=== PATIENT | female | born 1990 | race Caucasian/White ===

== ENCOUNTER 2016-09-22 07:29 | Emergency (ER) | payer SELFPAY ==
[2016-09-22 07:58] LABS: BASOPHILS 0.3 % (0-2); EOSINOPHILS 1.5 % (0-7); HEMATOCRIT 43.8 % (36.0-48.0); HEMOGLOBIN 15.1 g/dL (12-16); IMMATURE GRANULOCYTES 0.3 % (0-5); LYMPHOCYTES 22.2 % (15-50); MCH 33.6 pg (26.0-34.0); MCHC 34.5 g/dL (31.0-37.0); MCV 97.6 fL (80.0-100.0); MEAN PLATELET VOLUME 10.7 fL (7.4-10.4); MONOCYTES 10.1 % (2-11); NEUTROPHILS 65.6 % (40-80); PLATELET COUNT 210 10x3/uL (130-400); RBC 4.49 10x6/uL (4.00-5.40); RDW 12.2 % (11.5-14.5); WBC 7.4 10x3/uL (4.8-10.8)
[2016-09-22 08:04] LABS: HCG URINE NEGATIVE (NEGATIVE)
[2016-09-22 08:10] LABS: APPEARANCE HAZY (CLEAR); BACTERIA MODERATE /hpf (NONE SEEN); BILIRUBIN NEGATIVE (NEGATIVE); COLOR YELLOW (YELLOW); EPITHELIAL CELLS 0-5 /hpf (0-5); GLUCOSE NEGATIVE (NEGATIVE); KETONE NEGATIVE (NEGATIVE); LEUKOCYTE ESTERASE TRACE (NEGATIVE); MUCUS <1+ /lpf (NONE SEEN); NITRITE NEGATIVE (NEGATIVE); PROTEIN NEGATIVE (NEGATIVE); SPECIFIC GRAVITY 1.015 (1.005-1.020); UROBILINOGEN NORMAL (NORMAL)
[2016-09-22 08:15] LABS: ALBUMIN 4.5 g/dL (3.4-5.0); ALKALINE PHOSPHATASE 46 U/L (46-116); ALT (SGPT) 24 U/L (10-68); BILIRUBIN - TOTAL 0.74 mg/dL (0.2-1.3); CALC OSMOLALITY 280 mosm/kg (275-300); CHLORIDE - SERUM 105 mmol/L (98-107); CREATININE - SERUM 0.9 mg/dL (0.6-1.3); GLUCOSE 83 mg/dL (74-106); LIPASE 182 U/L (73-393); POTASSIUM - SERUM 3.6 mmol/L (3.5-5.1); PROTEIN - SERUM 8.1 g/dL (6.4-8.2); SODIUM 142 mmol/L (136-145); UREA NITROGEN 9 mg/dL (7-18); eGFR NON AFRICAN AMERICAN 80 mL/min (90-120)
== END 2016-09-22 09:25 | disposition home or self-care (01) ==
LOC: D.ER 07:29
PROVIDERS: Emergency Medicine
DX: N23 Unspecified renal colic (principal); K59.00 Constipation, unspecified; F17.200 Nicotine dependence, unspecified, uncomplicated

== ENCOUNTER 2016-12-10 06:32 | Emergency (ER) | payer MEDICAID | END 2016-12-10 08:51 | disposition home or self-care (01) | LOC: D.ER 06:32 | DX: R09.1 Pleurisy (principal); F17.200 Nicotine dependence, unspecified, uncomplicated ==

== ENCOUNTER 2017-02-04 19:31 | Emergency (ER) | payer MEDICAID ==
[2017-02-04 19:53] LABS: BASOPHILS 0.4 % (0-2); EOSINOPHILS 1.4 % (0-7); HEMATOCRIT 41.1 % (36.0-48.0); IMMATURE GRANULOCYTES 0.1 % (0-5); LYMPHOCYTES 27.7 % (15-50); MCH 32.1 pg (26.0-34.0); MCHC 34.1 g/dL (31.0-37.0); MCV 94.3 fL (80.0-100.0); MEAN PLATELET VOLUME 10.6 fL (7.4-10.4); MONOCYTES 7.4 % (2-11); PLATELET COUNT 218 10x3/uL (130-400); RBC 4.36 10x6/uL (4.00-5.40); RDW 12.9 % (11.5-14.5)
[2017-02-04 19:59] LABS: APPEARANCE CLEAR (CLEAR); COLOR YELLOW (YELLOW); SPECIFIC GRAVITY 1.015 (1.005-1.020)
[2017-02-04 20:00] LABS: BILIRUBIN NEGATIVE (NEGATIVE); GLUCOSE NEGATIVE (NEGATIVE); KETONE NEGATIVE (NEGATIVE); NITRITE NEGATIVE (NEGATIVE); PROTEIN NEGATIVE (NEGATIVE); UROBILINOGEN NORMAL (NORMAL)
[2017-02-04 20:01] LABS: BACTERIA MODERATE /hpf (NONE SEEN); HCG URINE NEGATIVE (NEGATIVE); MUCUS <1+ /lpf (NONE SEEN); RED CELLS - URINE 0-5 /hpf (0-5); WHITE CELLS - URINE 0-5 /hpf (0-5)
[2017-02-04 20:03] LABS: AMYLASE - SERUM 65 U/L (25-115); LIPASE 179 U/L (73-393)
[2017-02-04 20:17] LABS: ALBUMIN 4.5 g/dL (3.4-5.0); ANION GAP 11.3 mmol/L (8-16); BILIRUBIN - TOTAL 0.3 mg/dL (0.2-1.3); CALCIUM 9.9 mg/dL (8.5-10.1); CARBON DIOXIDE 27.4 mmol/L (21.0-32.0); POTASSIUM - SERUM 3.7 mmol/L (3.5-5.1); PROTEIN - SERUM 8.3 g/dL (6.4-8.2)
== END 2017-02-04 22:50 | disposition home or self-care (01) ==
LOC: D.ER 19:31
PROVIDERS: Emergency Medicine
DX: R10.13 Epigastric pain (principal); F17.200 Nicotine dependence, unspecified, uncomplicated

== ENCOUNTER 2017-04-05 15:50 | Emergency (ER) | payer MEDICAID ==
[2017-04-05 16:17] LABS: BASOPHILS 0.2 % (0-2); EOSINOPHILS 0.6 % (0-7); HEMATOCRIT 42.1 % (36.0-48.0); HEMOGLOBIN 14.4 g/dL (12-16); IMMATURE GRANULOCYTES 0.2 % (0-5); LYMPHOCYTES 17.6 % (15-50); MCH 32.4 pg (26.0-34.0); MCHC 34.2 g/dL (31.0-37.0); MCV 94.8 fL (80.0-100.0); MEAN PLATELET VOLUME 10.8 fL (7.4-10.4); MONOCYTES 8.3 % (2-11); NEUTROPHILS 73.1 % (40-80); PLATELET COUNT 200 10x3/uL (130-400); RBC 4.44 10x6/uL (4.00-5.40); WBC 8.7 10x3/uL (4.8-10.8)
[2017-04-05 16:40] LABS: ALBUMIN 4.5 g/dL (3.4-5.0); ALKALINE PHOSPHATASE 46 U/L (46-116); ALT (SGPT) 20 U/L (10-68); AMYLASE - SERUM 57 U/L (25-115); CALC OSMOLALITY 276 mosm/kg (275-300); CALCIUM 9.5 mg/dL (8.5-10.1); CARBON DIOXIDE 26.7 mmol/L (21.0-32.0); CHLORIDE - SERUM 104 mmol/L (98-107); CREATININE - SERUM 0.9 mg/dL (0.6-1.3); GLUCOSE 98 mg/dL (74-106); LIPASE 167 U/L (73-393); POTASSIUM - SERUM 3.8 mmol/L (3.5-5.1); PROTEIN - SERUM 7.9 g/dL (6.4-8.2); SODIUM 139 mmol/L (136-145); UREA NITROGEN 11 mg/dL (7-18); eGFR NON AFRICAN AMERICAN 79 mL/min (90-120)
[2017-04-05 16:42] LABS: APPEARANCE CLEAR (CLEAR); BILIRUBIN NEGATIVE (NEGATIVE); COLOR YELLOW (YELLOW); GLUCOSE NEGATIVE (NEGATIVE); KETONE NEGATIVE (NEGATIVE); NITRITE NEGATIVE (NEGATIVE); PROTEIN NEGATIVE (NEGATIVE); UROBILINOGEN NORMAL (NORMAL)
[2017-04-05 16:43] LABS: WHITE CELLS - URINE 0-5 /hpf (0-5)
[2017-04-05 16:44] LABS: BACTERIA FEW /hpf (NONE SEEN); EPITHELIAL CELLS 0-5 /hpf (0-5); RED CELLS - URINE OCC /hpf (0-5)
== END 2017-04-05 18:13 | disposition home or self-care (01) ==
LOC: D.ER 15:50
PROVIDERS: Emergency Medicine
DX: R10.13 Epigastric pain (principal); F17.200 Nicotine dependence, unspecified, uncomplicated

== ENCOUNTER 2017-04-12 09:38 | Emergency (ER) | payer MEDICAID ==
[2017-04-12 10:22] LABS: HEMATOCRIT 38.2 % (36.0-48.0); HEMOGLOBIN 13.3 g/dL (12-16); LYMPHOCYTES 6.2 % (15-50); MCHC 34.8 g/dL (31.0-37.0); MCV 91.8 fL (80.0-100.0); NEUTROPHILS 86.6 % (40-80); RBC 4.16 10x6/uL (4.00-5.40); RDW 12.1 % (11.5-14.5); WBC 12.1 10x3/uL (4.8-10.8)
[2017-04-12 10:23] LABS: PLATELET COUNT 136 10x3/uL (130-400)
[2017-04-12 10:31] LABS: ALBUMIN 3.7 g/dL (3.4-5.0); ALKALINE PHOSPHATASE 45 U/L (46-116); ALT (SGPT) 19 U/L (10-68); CALC OSMOLALITY 268 mosm/kg (275-300); CALCIUM 8.4 mg/dL (8.5-10.1); CARBON DIOXIDE 23.7 mmol/L (21.0-32.0); CHLORIDE - SERUM 101 mmol/L (98-107); CREATININE - SERUM 0.9 mg/dL (0.6-1.3); GLUCOSE 102 mg/dL (74-106); POTASSIUM - SERUM 3.6 mmol/L (3.5-5.1); PROTEIN - SERUM 7.3 g/dL (6.4-8.2); SODIUM 135 mmol/L (136-145); UREA NITROGEN 9 mg/dL (7-18); eGFR NON AFRICAN AMERICAN 79 mL/min (90-120)
[2017-04-12 13:30] LABS: COLOR YELLOW (YELLOW)
[2017-04-12 13:31] LABS: APPEARANCE CLOUDY (CLEAR); BACTERIA MANY /hpf (NONE SEEN); BILIRUBIN NEGATIVE (NEGATIVE); EPITHELIAL CELLS 25-50 /hpf (0-5); GLUCOSE NEGATIVE (NEGATIVE); KETONE LARGE mg/dL (NEGATIVE); MUCUS >1+ /lpf (NONE SEEN); NITRITE POSITIVE (NEGATIVE); PROTEIN 1+ mg/dL (NEGATIVE); UROBILINOGEN NORMAL (NORMAL); WHITE CELLS - URINE 25-50 /hpf (0-5)
== END 2017-04-12 16:17 | disposition home or self-care (01) ==
LOC: D.ER 09:38
PROVIDERS: Family Medicine; Physician Assistant
DX: R50.9 Fever, unspecified (principal); R05 Cough; N12 Tubulo-interstitial nephritis, not specified as acute or chronic

== ENCOUNTER → 2017-05-10 12:19 | Outpatient (CLI) | payer MEDICAID | END | disposition home or self-care (01) | LOC: D.NM 12:19 | DX: R10.9 Unspecified abdominal pain (principal) ==

== ENCOUNTER 2017-07-22 20:14 | Emergency (ER) | payer MEDICAID ==
[2017-07-22 21:09] LABS: BASOPHILS 0.2 % (0-2); EOSINOPHILS 2.4 % (0-7); HEMATOCRIT 42.1 % (36.0-48.0); HEMOGLOBIN 14.9 g/dL (12-16); IMMATURE GRANULOCYTES 0.2 % (0-5); LYMPHOCYTES 28.8 % (15-50); MCH 33.4 pg (26.0-34.0); MCHC 35.4 g/dL (31.0-37.0); MCV 94.4 fL (80.0-100.0); MEAN PLATELET VOLUME 11.1 fL (7.4-10.4); MONOCYTES 8.5 % (2-11); NEUTROPHILS 59.9 % (40-80); RBC 4.46 10x6/uL (4.00-5.40); RDW 11.6 % (11.5-14.5); WBC 8.9 10x3/uL (4.8-10.8)
[2017-07-22 21:10] LABS: PLATELET COUNT 241 10x3/uL (130-400)
[2017-07-22 21:22] LABS: HCG SERUM NEGATIVE (NEGATIVE)
[2017-07-22 21:23] LABS: ALBUMIN 4.4 g/dL (3.4-5.0); ALKALINE PHOSPHATASE 52 U/L (46-116); ALT (SGPT) 19 U/L (10-68); CALC OSMOLALITY 281 mosm/kg (275-300); CALCIUM 9.7 mg/dL (8.5-10.1); CHLORIDE - SERUM 107 mmol/L (98-107); CREATININE - SERUM 0.8 mg/dL (0.6-1.3); GLUCOSE 86 mg/dL (74-106); POTASSIUM - SERUM 3.2 mmol/L (3.5-5.1); SODIUM 143 mmol/L (136-145); UREA NITROGEN 7 mg/dL (7-18); eGFR NON AFRICAN AMERICAN 90 mL/min (90-120)
[2017-07-22 21:26] LABS: AMYLASE - SERUM 53 U/L (25-115); LIPASE 185 U/L (73-393); TROPONIN-I < 0.017 ng/mL (0.000-0.060)
[2017-07-22 21:48] LABS: APPEARANCE HAZY (CLEAR); BILIRUBIN NEGATIVE (NEGATIVE); COLOR YELLOW (YELLOW); GLUCOSE NEGATIVE (NEGATIVE); KETONE NEGATIVE (NEGATIVE); NITRITE POSITIVE (NEGATIVE); PROTEIN NEGATIVE (NEGATIVE); SPECIFIC GRAVITY 1.015 (1.005-1.020); UROBILINOGEN NORMAL (NORMAL)
[2017-07-22 21:52] LABS: HCG URINE NEGATIVE (NEGATIVE)
== END 2017-07-23 00:17 | disposition home or self-care (01) ==
LOC: D.ER 20:14
PROVIDERS: Family Medicine
DX: R07.89 Other chest pain (principal); R09.1 Pleurisy

== ENCOUNTER 2019-10-15 10:06 | Inpatient (IN) | payer MEDICAID ==
[~2019-10-15] VITALS: Ht 170.2 cm; Wt 59.1 kg
--- NOTE | ~2019-10-15 | OP ---
PATIENT NAME: BERNABE WILKES MEDICAL RECORD: [id number] :86 LOCATION:[id number] ADMISSION DATE:10/15/19 SURGEON: SHANIQUA COLLIER MD DATE OF OPERATION: 10/15/2019 PREOPERATIVE DIAGNOSES: 1. Abdominal pain. 2. Suspected ectopic . 3. Suspected hemoperitoneum. POSTOPERATIVE DIAGNOSES: 1. Abdominal pain. 2. Suspected ectopic . 3. Suspected hemoperitoneum. 4. Left ruptured fallopian ectopic . PROCEDURE: Exploratory laparotomy and left salpingectomy. SPECIMENS: Included fallopian tube with products of conception. FINDINGS: 1. Hemoperitoneum extensively with approximately 700-800 cc of blood in the intraperitoneal space. 2. Ruptured left fallopian tube with obvious products of conception and active bleeding. 3. Normal appearing right fallopian tube and ovary. 4. Normal left ovary. ESTIMATED BLOOD LOSS: 700 cc present in the abdomen upon entry. A 100 cc of active bleeding during the procedure. COMPLICATIONS: None apparent. PROCEDURE IN DETAIL: The patient was taken to the operating room where general anesthesia was achieved without difficulty. The patient was then prepped and draped in normal sterile fashion in the dorsal supine position. SCDs were on and functioning normally. A Pacheco catheter had been placed and was draining freely. A Pfannenstiel skin incision was made, extended down to the subcutaneous fat to level of the fascia, which was then excised in the midline with a scalpel and extended bilaterally using the Lowery scissors. Superior and inferior aspects fascial incision were grasped with Moises clamps times 2, tented upward, and sharply dissected from underlying rectus muscle using the Bovie cautery and the Lowery scissors. Rectus muscles were then bluntly in the midline. The peritoneum was entered sharply at the superior aspect of the incision using the Metzenbaum scissors. Immediately of note was a significant hemoperitoneum. The peritoneal incision was then extended downward and laterally using the Metzenbaum scissors. Irrigation was then used to remove the hemoperitoneum. The initial source of bleeding was not initially apparent. Upon palpation in the pelvis, the uterus was palpated and a large collection of clot was noted to be adherent to the left adnexa and pelvic sidewall. The uterus was then manually elevated and grasped on its bilateral cornua using Moises clamps times 2. The left adnexa was then cleared of all clot and debris and the ruptured left fallopian tube was noted with obvious products of conception. The fallopian tube was then clamped with a single curved Cristian clamp across the mesosalpinx. Exploration of the left ovarian fossa and pelvic OPERATIVE REPORT [id number] BERNABE WILKES sidewall was performed, no evidence of damage to the left infundibulopelvic ligament or ovary was noted. The fallopian tube had a large rupture and at approximately 2-3 cm, the tube was then excised and the mesosalpinx oversewn with 0 Vicryl times 2. Good hemostasis was noted. The abdomen and pelvis was then thoroughly irrigated to remove as much blood as possible. The surgical sites were found to be hemostatic and hemostatic powdered Gelfoam was placed on the operative site. Counts were correct times 2 for needles, sponges, and instruments. The fascia was then repaired with 0 loop PDS times 1 and skin repaired with nedra. The patient tolerated procedure well, transferred to postanesthesia recovery stable without incident. TRANSINT:[id number] Voice Confirmation ID: [id number] DOCUMENT ID: [id number] SHANIQUA COLLIER MD CC: [id number] DICTATION DATE: 10/21/19 1336 CONE EXAMINER: 10/21/19 2149 DIS IN 10/17/19 [facility] [address] [place] [address]
[2019-10-15 10:44] LABS: BASOPHILS 0.2 % (0-2); EOSINOPHILS 0.6 % (0-7); HEMATOCRIT 41.1 % (36.0-48.0); HEMOGLOBIN 13.7 g/dL (12-16); IMMATURE GRANULOCYTES 0.3 % (0-5); LYMPHOCYTES 12.9 % (15-50); MCH 32.9 pg (26.0-34.0); MCHC 33.3 g/dL (31.0-37.0); MCV 98.6 fL (80.0-100.0); MEAN PLATELET VOLUME 10.5 fL (7.4-10.4); MONOCYTES 5.2 % (2-11); NEUTROPHILS 80.8 % (40-80); PLATELET COUNT 251 10x3/uL (130-400); RBC 4.17 10x6/uL (4.00-5.40); RDW 11.9 % (11.5-14.5); WBC 9.9 10x3/uL (4.8-10.8)
[2019-10-15 10:53] LABS: BILIRUBIN NEGATIVE (NEGATIVE); EPITHELIAL CELLS 0-5 /hpf (0-5); KETONE NEGATIVE (NEGATIVE); NITRITE NEGATIVE (NEGATIVE); RED CELLS - URINE RARE /hpf (0-5); UROBILINOGEN NORMAL (NORMAL); WHITE CELLS - URINE 0-5 /hpf (NEGATIVE)
[2019-10-15 10:54] LABS: BACTERIA FEW /hpf (NEGATIVE)
[2019-10-15 10:55] LABS: CALC OSMOLALITY 272 mosm/kg (275-300); CALCIUM 9.2 mg/dL (8.5-10.1); CARBON DIOXIDE 25.8 mmol/L (21.0-32.0); CHLORIDE - SERUM 104 mmol/L (98-107); CREATININE - SERUM 0.8 mg/dL (0.6-1.3); GLUCOSE 111 mg/dL (74-106); POTASSIUM - SERUM 3.7 mmol/L (3.5-5.1); SODIUM 137 mmol/L (136-145); UREA NITROGEN 8 mg/dL (7-18); eGFR NON AFRICAN AMERICAN 89 mL/min (90-120)
[2019-10-15 11:05] LABS: ALBUMIN 4.4 g/dL (3.4-5.0); ALKALINE PHOSPHATASE 54 U/L (30-120); ALT (SGPT) 28 U/L (10-68); AMYLASE - SERUM 60 U/L (25-115); LIPASE 124 U/L (73-393); PROTEIN - SERUM 7.8 g/dL (6.4-8.2)
[2019-10-15 11:06] LABS: TROPONIN-I < 0.017 ng/mL (0.000-0.060)
[2019-10-15 12:00] VITALS: BP 126/73
[2019-10-15 12:00] LABS: HCG URINE POSITIVE (NEGATIVE)
--- NOTE | 2019-10-15 12:13 | NUR ---
PT IS DRINKING WATER FOR ULTRASOUND.
--- NOTE | 2019-10-15 12:30 | NUR ---
PT TO ULTRASOUND
[2019-10-15 13:00] VITALS: BP 123/67
[2019-10-15 14:00] VITALS: BP 118/71
[2019-10-15 17:29] VITALS: BP 119/61
--- NOTE | 2019-10-15 17:30 | NUR ---
RECEIVED BY BED FROM RECOVERY, PT IS AWAKE BUT DROWSY, SHE IS ABLE TO ANSWER QUESTIONS ABOUT REASON FOR COMING TO HOSPITAL AND WHY SHE HAD SURGERY. RATES PAIN AT 0/10 AT THIS TIME. ABD SOFT TO TOUCH, BIKINI INCISION WITH WHITE ABD DRESSING THAT IS CLEAN AND DRY. IV TO LEFT AC WITH 20 GAUGE CATH PATENT AND INFUSING LR WHICH IS PLACED ON PUMP AT 125ML/HR. 2ND IV TO RIGHT INNER FOREARM WHICH APPEARS TO BE SALINE LOCKED. SCD'S BILAT PER ORDERS, PLACED ON PUMP. SHE DENIES NAUSEA AND REQUEST APPLE JUICE TO DRINK. SIDE RAILS UP X 2 WITH PHONE AND CALL LIGHT IN REACH. SPOUSE AT BEDSIDE.
--- NOTE | 2019-10-15 17:40 | NUR ---
AVILES CATH TO BEDSIDE DRAIN, 150ML CLEAR URINE NOTED TO COLLECTION CANISTER.
--- NOTE | 2019-10-15 18:30 | NUR ---
ICE PACK OFFERED TO GO OVER INCISION AND AID WITH DISCOMFORT BUT SHE DENIES AT THIS TIME. RATES PAIN AT 4-5/10. DILAUDID REHAB NURSE STARTED AND SHE DEMONSTRATES UNDERSTANDING OF USE.
--- NOTE | 2019-10-15 18:45 | NUR ---
BEDSIDE REPORT TO Shun CAMACHO RN.
--- NOTE | 2019-10-15 19:00 | NUR ---
PT REC'D IN BED AT THIS TIME. STATES THAT PAIN IS 5/10. BEDSIDE REPORT GIVEN AND CONTRACTING MANAGER PF DILAUDID UP AT THIS TIME. IV TO THE RT ARM REMOVED. SITE CLOTTED OFF AT THIS TIME. DRESSING TO THE ABDOMEN CDI. ICE PACK IN PLACE. AVILES CATH PATENT WITH TEQUILA URINE NOTED AT THIS TIME. NO DISTRESS NOTED AT THIS TIME. Abisai CAMACHO RN
[2019-10-15 19:58] VITALS: Ht 170.2 cm; Wt 59.1 kg
--- NOTE | 2019-10-15 20:15 | NUR ---
PT STATES THAT PAIN IS NO2 /. ICE PACK REPLACED AT THIS TIME. NO DISTRESS NOTED AT THIS TIME. Abisai CAMACHO RN
--- NOTE | 2019-10-15 21:30 | NUR ---
PT STATES THAT PAIN IS A 2 AT THIS TIME. REFILLED WATER AT THIST TAYE. NO DISTRESS NOTED. Abisai CAMACHO RN
--- NOTE | 2019-10-16 02:10 | NUR ---
PT RESTING AT THIS TIME. NO DISTRESS NOTED. Abisai CAMACHO RN
[2019-10-16 02:45] VITALS: BP 102/56
--- NOTE | 2019-10-16 04:15 | NUR ---
PT REC'D IN BED ASLEEP AT THIS TIME. NO DISTRESS NOTED. Abisai CAMACHO RN
[2019-10-16 07:03] LABS: CALC OSMOLALITY 272 mosm/kg (275-300); CALCIUM 8.3 mg/dL (8.5-10.1); CARBON DIOXIDE 26.3 mmol/L (21.0-32.0); CHLORIDE - SERUM 106 mmol/L (98-107); CREATININE - SERUM 0.7 mg/dL (0.6-1.3); GLUCOSE 125 mg/dL (74-106); POTASSIUM - SERUM 4.2 mmol/L (3.5-5.1); SODIUM 137 mmol/L (136-145); UREA NITROGEN 7 mg/dL (7-18); eGFR NON AFRICAN AMERICAN > 90 mL/min (90-120)
[2019-10-16 07:06] LABS: BASOPHILS 0.1 % (0-2); EOSINOPHILS 0 % (0-7); HEMATOCRIT 27.9 % (36.0-48.0); HEMOGLOBIN 9.2 g/dL (12-16); IMMATURE GRANULOCYTES 0.2 % (0-5); LYMPHOCYTES 8.2 % (15-50); MCH 32.4 pg (26.0-34.0); MCV 98.2 fL (80.0-100.0); MEAN PLATELET VOLUME 10.8 fL (7.4-10.4); MONOCYTES 8.1 % (2-11); NEUTROPHILS 83.4 % (40-80); PLATELET COUNT 197 10x3/uL (130-400); RBC 2.84 10x6/uL (4.00-5.40); RDW 11.8 % (11.5-14.5); WBC 10.3 10x3/uL (4.8-10.8)
[2019-10-16 08:37] VITALS: BP 108/56
--- NOTE | 2019-10-16 08:37 | NUR ---
SHIFT ASSESSMENT COMPLETED PER FLOWSHEET. VSS. NO VAG BLEEDING NOTED. C/O ABD AND INCISIONAL DISCOMFORT WITH MOVEMENT 2-3/10, REPORTS THAT STENCIL MAKER IS CONTROLLING PAIN WELL. AVILES PRESENT AND DRAINING TO BEDSIDE DRAINAGE CLEAR LIGHT YELLOW URINE NOTED. LOWER TRANSVERSE ABD INCISION WELL APPROXIMATED WITH MARKOS INTACT, NO DRAINAGE NOTED. NO S/S OF INFECTION NOTED. PT INSTRUCTED ON INCISIONAL CARE, VERBALIZES UNDERSTANDING AND DENIES NEEDS. POC DISCUSSED WITH PT AND SIGNIFICANT OTHER, BOTH VERBALIZE UNDERSTANDING AND DENY QUESTIONS. BED IN LOW POSITION WITH SRUP X2. CALL LIGHT AND PHONE WITHIN REACH. SCD'S ON BLE. WILL CONTINUE TO MONITOR.
--- NOTE | 2019-10-16 09:33 | NUR ---
AVILES D/C'D WITH 150 MLS CLEAR LIGHT YELLOW URINE PRESENT. C/O ABD AND INCISIONAL DISCOMFORT. NORCO AND MOTRIN PROVIDED, PT EDUCATED ON MEDS AND VERBALIZES UNDERSTANDING. AMB IN ROOM WITH STANDBY ASSIST, STEADY GAIT NOTED. PT VERBALIZES UNDERSTANDING OF CALL LIGHT USE AND STATES THAT SHE WILL USE CALL LIGHT PRN FOR ASSISTANCE.
[2019-10-16 12:52] VITALS: BP 106/57
--- NOTE | 2019-10-16 12:54 | NUR ---
VSS. SITTING IN HIGH FOWLERS POSITION EATING LUNCH TRAY. C/O ABD AND INCISIONAL DISCOMFORT 06/30. UP TO BR, VOIDED 100 MLS IN HAT. PERICARE PER PT. DENIES NEEDS. REQUEST PAIN MEDS WHEN AVAILABLE TO HAVE THEM NEXT. SPOUSE REMAINS IN ROOM, SUPPORTIVE AND ATTENTIVE TO PT AND HER NEEDS. REFUSES SCD'S AT THIS TIME. ENCOURAGED AMBULATION IN [place] FOLLOWING EATING LUNCH, VERBALIZES UNDERSTANDING.
--- NOTE | 2019-10-16 13:21 | MORECARE ---
CASE MANAGEMENT DISCHARGE SUMMARY PATIENT: BERNABE WILKES UNIT: [id number] ADM DATE: 10/15/19 AGE: 28 : 86 SEX: F ROOM/BED: D[facility] AUTHOR: MONI PIMENTEL PHYSICIAN: REFERRING PHYSICIAN: SHANIQUA COLLIER MD DATE OF SERVICE: 10/16/19 Discharge Plan Patient Name: BERNABE WILKES [facility] [facility] 1990 Planned Disposition: Anticipated Discharge Date: Discharge Date: Expected LOS: Initial Reviewer: [email or web address] Initial Review Date: 10/15/2019 Generated: 10/16/19 2:20 pm Patient Name: BERNABE WILKES Page [id number] at 1321 All edits/amendments must be made on the electronic document DICTATION DATE: 10/16/19 1320 HOME SALES SERVICE PROFESSIONAL: MELINDA 10/16/19 1320 RPT#: [id number] DC DATE: STATUS: ADM IN [facility] [address] [place] [address] END OF REPORT
--- NOTE | 2019-10-16 13:32 | NUR ---
C/O ABD AND INCISIONAL DISCOMFORT. NORCO GIVEN PER ORDER AND PT REQUEST ICE WATER PROVIDED. DENIES ADDITIONAL NEEDS. BED IN LOW POSITION WITH SRUP X2. CALL LIGHT AND PHONE WITHIN REACH. WILL CONTINUE TO MONITOR.
--- NOTE | 2019-10-16 13:42 | NUR ---
AMBULATORY TO BR INDEPENDENTLY. VOIDED 500 MLS CLEAR LIGHT YELLOW URINE IN HAT. STEADY GAIT NOTED. DENIES NEEDS. SPOUSE REMAINS AT BEDSIDE, SUPPORTIVE AND ATTENTIVE.
--- NOTE | 2019-10-16 14:11 | NUR ---
PAIN REASSESSMENT COMPLETED, RESTING QUIETLY ON R SIDE WITH EYES CLOSED. RESP REGULAR AND UNLABORED, NO S/S OF DISTRESS NOTED. BED IN LOW POSITION WITH SRUP X2. CALL LIGHT AND PHONE WITHIN REACH. WILL CONTINUE TO MONITOR.
--- NOTE | 2019-10-16 15:27 | NUR ---
AMBULATORY IN [place]LL[place]. STEADY GAIT NOTED. DENIES NEEDS. SPOUSE WALKING WITH PT.
--- NOTE | 2019-10-16 16:31 | NUR ---
RESTING QUIETLY LAYING ON L SIDE, RESP REGULAR AND UNLABORED, NO S/S OF DISTRESS NOTED. SPOUSE RESTING ON COUCH AT BEDSIDE. BED IN LOW POSITION WITH SRUP X2. CALL LIGHT AND PHONE WITHIN REACH.
[2019-10-16 19:07] VITALS: BP 120/66
--- NOTE | 2019-10-16 19:07 | NUR ---
PT REC'D AMBULATING IN ROOM. C/O PAIN 08/30. PT MEDICATED WITH HYDROCODONE AND IBUPROFEN AT THIS TIME. WILL CONTINUE TO MONITOR. SALINE LOCK TO THE LEFT AC. INCISION INTACT WITH MARKOS. NO S/S OF INFECTION NOTED AT THIS TIME. NO ACUTE DISTRESS NOTED. Abisai CAMACHO RN
--- NOTE | 2019-10-16 20:22 | NUR ---
pt in bed at thist time. ambulated in lilly. states that pain is a 1/10. will continue to monitor. zane oneil rn
--- NOTE | 2019-10-16 21:39 | NUR ---
pt rec'd in bed at this time. denies pain or needs. zane oneil rn
--- NOTE | 2019-10-16 22:30 | NUR ---
PT REC'D IN BED WATCHING TV. NO DISTRESS NOTED. Abisai CAMACHO RN
--- NOTE | 2019-10-16 23:15 | NUR ---
PT MEDICATED FOR PAIN OF 4/10 WITH NORCO. SALINE LOCK FLUSHED. NO LEAKING/INFILTRATION NOTED. Abisai CAMACHO RN
--- NOTE | 2019-10-17 00:07 | NUR ---
PT REC'D IN BED ASLEEP AT THIS TIME. DID NOT AWAKEN. NO DISTRESS NOTED. Abisai CAMACHO RN
[2019-10-17 02:13] VITALS: BP 113/59
--- NOTE | 2019-10-17 02:13 | NUR ---
PT REC'D IN BED AT THIS TIME. RESTING WELL. DENIES PAIN. VSS. NO DISTRESS NOTED. Abisai CAMACHO RN
--- NOTE | 2019-10-17 04:40 | NUR ---
PT RESTING WELL AT THIS TIME. NO DISTRESS NOTED. Abisai CAMACHO RN
[2019-10-17 07:44] VITALS: BP 117/62
--- NOTE | 2019-10-17 07:44 | NUR ---
RECEIVED PT SITTING UP IN BED CONSUMING BREAKFAST. VSS. HRRR WITHOUT AUDIBLE MURMUR. BBS CLEAR. BS X 4. ABDOMEN SOFT/NON-DISTENDED. ABDOMINAL INCISION WITH MARKOS WITHOUT REDNESS, SWELLING OR DRAINGE NOTD. NO VAGINAL DISCHARGE NOTED. NEG HOMANS' SIGN. PPP. NO EDEMA NOTED TO BLE. SL TO LEFT AC. SITE CLEAR. FLUSHES EASILY WITH 10 ML NS. PT C/O ABDOMINAL PAIN OF "6" ON 0-10 PAIN SCALE. SR UP X 2. CALL LIGHT IN REACH. FRESH ICE WATER PROVIDED TO PT.
--- NOTE | 2019-10-17 07:50 | NUR ---
MOTRIN 600 MG, NORCO 10/325 AND NICOTINE PATCH GIVEN TO PT ORDERED. PT INSTRUCTED ON ALL MEDS. VERBALIZES UNDERSTANDING.
--- NOTE | 2019-10-17 07:58 | NUR ---
DR COLLIER VISITS WITH PT. DISCUSSES DISCHARGE THIS AFTERNOON.
--- NOTE | 2019-10-17 09:35 | NUR ---
PT SITTING UP IN BED. VISITS WITH SO. STATES PAIN MUCH BETTER. DENIES NEEDS OR C/O.
[2019-10-17] MEDS ORDERED: MOTRIN600 MG PO (10:14)
[2019-10-17] MEDS ORDERED: HYDROCODON-ACE1 EA10 PO (10:14)
--- NOTE | 2019-10-17 11:14 | NUR ---
DR COLLIER ON UNIT. STATES PT MAY DC HOME.
--- NOTE | 2019-10-17 11:23 | NUR ---
SL DC'D WITH CATHELON INTACT. PRESSURE BANDAGE TO SITE. PT TEJ WELL.
--- NOTE | 2019-10-17 11:55 | NUR ---
PT GIVEN DISCHARGE INSTRUCTIONS. VERBALIZES UNDERSTANDING OF ALL INSTRUCTIONS. COPIES GIVEN TO PT.
--- NOTE | 2019-10-17 12:00 | NUR ---
PT READY FOR DISCHARGE. DISCHARGED IN STABLE CONDITION VIA WHEELCHAIR TO PRIVATE VEHICLE.
--- NOTE | 2019-10-19 14:57 | MORECARE ---
CASE MANAGEMENT DISCHARGE SUMMARY PATIENT: BERNABE WILKES UNIT: [id number] ADM DATE: 10/15/19 AGE: 28 : 86 SEX: F ROOM/BED: D.[facility] AUTHOR: MONI PIMENTEL PHYSICIAN: REFERRING PHYSICIAN: SHANIQUA COLLIER MD DATE OF SERVICE: 10/19/19 Discharge Plan Patient Name: BERNABE WILKES [facility] [facility] 1990 Planned Disposition: Home Anticipated Discharge Date: 10/17/19 Discharge Date: 10/17/2019 Expected LOS: 2 Initial Reviewer: [email or web address] Initial Review Date: 10/15/2019 Generated: 10/19/19 3:56 pm Last DP export: 10/16/19 12:21 p Patient Name: BERNABE WILKES Page [phone] at 1457 All edits/amendments must be made on the electronic document DICTATION DATE: 10/19/19 1456 [facility] NURSE: MELINDA 10/19/19 1456 RPT#: [id number] DC DATE:10/17/19 STATUS: DIS IN [facility] [address] [place] [address] END OF REPORT
== END 2019-10-17 12:00 | disposition home or self-care (01) | DRG 817 ==
LOC: D.ER 10:06 → D.LD 17:25
PROVIDERS: Family Medicine; ADMIT Obstetrics & Gynecology; ATTEND Obstetrics & Gynecology
PROC: 10T20ZZ Resection of Products of Conception, Ectopic, Open Approach (ICD-10-PCS; principal; 2019-10-15 14:00)
DX: O00.102 Left tubal pregnancy without intrauterine pregnancy (principal); K66.1 Hemoperitoneum